=== PATIENT | male | born 1995 | race African-American/Black ===

== ENCOUNTER 2016-09-26 10:26 | Day surgery (SDC) | payer OTHER ==
[~2016-09-26] VITALS: Ht 177.8 cm; Wt 65.7 kg
[2016-09-26 10:48] VITALS: BP 125/81
[2016-09-26 17:35] VITALS: BP 138/85
[2016-09-26 18:34] VITALS: BP 121/69
[2016-09-26 20:20] VITALS: BP 137/86
== END 2016-09-26 20:45 | disposition home or self-care (01) ==
LOC: SDC 10:26
DX: S83.512A Sprain of anterior cruciate ligament of left knee, initial encounter (principal); M23.42 Loose body in knee, left knee; X58.XXXA Exposure to other specified factors, initial encounter; Y93.67 Activity, basketball; Y92.310 Basketball court as the place of occurrence of the external cause
CPT/HCPCS: C1713; J0131; J0171; J0690; J1170; J1885; J2250; J2405; J2765; J3010